=== PATIENT | male | born 1980 | race Hispanic/Latino ===

== ENCOUNTER 2022-04-25 11:24 | Emergency (ER) | payer OTHER ==
--- OUTSIDE RECORDS SUMMARY | 2022-04-25 11:28 | XMS REPORT | Continuity of Care Document ---
:1980 Author Organization [facility] t Address [address] [place] [address] Care Team Providers Name Role Phone Saad Hardin Attending Clinician Unavailable Problems Condition Condition Condition Status Onset Resolution Last Treating Co mments Source Name Details Category Date Date Treatment Clinician Date Crohn''s Crohn''s Problem Active Commo n disease disease [facility] with with - [facility] gastrointe gastrointe stinal stinal tract tract location location Mixed Mixed Diagnosis Active Common hyperlipid hyperlipid Sp [place] [facility] GERD GERD Problem Active Common without without Spirit esophagiti esophagiti - [facility] s [facility] Depression Depression Problem Active C ommon with with [facility] anxiety anxiety [facility] Allergies, Adverse Reactions, Alerts This patient has no known allergies or adverse reactions. Social History Social Habit Start Date Stop Date Quantity Comments Source Sex Assigned At [birth year] [facility] 00:00:00 00:00:00 [facility] Medications Ordered Filled Start Stop Current Ordering Indication Dosage Frequency Signature Comments Components Source Medication Medication Date Date Medication? Clinician (SIG) Name Name Terbinafine Terbinafine 2019- 2019- No Saad 1 Common HCl HCl 0-11 11-10 Hardin applicatio [facility] 00:00: 00:00 n to - [facility] 00 :00 affected [facility] Propranolol Propranolol Yes Saad 2 tablet Common HCl HCl [facility] Abilify Abilify Yes Saad 1 tablet Com mon [facility] Gabapentin Gabapentin Yes Saad 1 capsule Common [facility] Procedures This patient has no known procedures. Encounters Start End Encounter Admission Attending Care Care Encounter Source Date/Time Date/Time Type Type Clinicians Facility Department ID 2021-03-25 Outpatient WILMER Hardin [facility] [id number] Common 11:07:38 Saad [id number] [facility] 2021-03-25 Outpatient [facility]IL[facility] Hardin [facility] [id number] Common 11:07:16 Saad [id number] [facility] 2019-04-06 2019-04-06 [facility] [id number] Common 09:00:00 09:00:[address] [facility] 2018-12-08 2018-12-08 [facility] [id number] Common 10:30:00 10:30:[address] [facility] 2018-08-11 2018-08-11 [facility] [id number] Common 11:18:00 11:18:[address] [facility] 2018-08-11 2018-08-11 [facility] [id number] Common 09:00:00 09:00:[address] [facility] 2018-02-08 2018-02-08 [facility] [id number] Common 09:45:00 09:45:[address] [facility] Results This patient has no known results.
[2022-04-25] MEDS ORDERED: LIDOCAINE 1% MPF 5 ML VIAL ONE (12:17)
--- NOTE | 2022-04-25 12:41 | ER ---
Nurse's Notes [facility] Name: Tulio Jaimes Age: 42 yrs Sex: Male : 1980 Arrival Date: 04/25/2022 Time: 11:27 Bed 19 Private MD: Diagnosis: Laceration without foreign body of right hand Presentation: 04/25 11:32 Chief complaint: Patient states: "I basically stabbed myself on my hand making aa5 biscuits". Bleeding controlled. 11:32 Acuity: [place] 4 aa5 11:32 Onset of symptoms was April 25, 2022. aa5 11:32 Coronavirus screen: At this time, the client does not indicate any symptoms associated aa5 with coronavirus-19. Ebola Screen: Patient denies travel to an Ebola-affected area in the 21 days before illness onset. Initial Sepsis Screen: Does the patient meet any 2 criteria? No. Patient's initial sepsis screen is negative. Does the patient have a suspected source of infection? No. Patient's initial sepsis screen is negative. Risk Assessment: Do you want to hurt yourself or someone else? Patient reports no desire to harm self or others. 11:32 Method Of Arrival: Ambulatory aa5 Historical: - Allergies: 11:40 No Known Allergies; aa5 - PMHx: 11:40 None; aa5 - PSHx: 11:40 R knee; aa5 - Immunization history:: Adult Immunizations unknown, Last tetanus immunization: < 5 years ago. - Social history:: Smoking status: Patient denies any tobacco usage or history of. Screenin:45 [facility] ED Fall Risk Assessment (Adult) History of falling in the last 3 months, ko1 including since admission No falls in past 3 months (0 pts) Confusion or Disorientation No (0 pts) Intoxicated or Sedated No (0 pts) Impaired Gait No (0 pts) Mobility Assist Device Used No (0 pt) Altered Elimination No (0 pt) Score/Fall Risk Level 0 - 2 = Low Risk Oriented to surroundings, Maintained a safe environment, Educated pt \\T\\ family on fall prevention, incl call for assistance when getting out of bed, Assessed \\T\\ reinforced patient's understanding of fall precautions, Provided non-skid footwear, Hourly rounding (assess needs \\T\\ fall precautionary measures) done, Used ambulatory aids as needed (educated on \\T\\ assisted with), Used gait belt as appropriate. Abuse screen: Denies threats or abuse. Denies injuries from another. Nutritional screening: No deficits noted. Tuberculosis screening: No symptoms or risk factors identified. Assessment: 11:45 General: Appears in no apparent distress. comfortable, Behavior is calm, cooperative, ko1 appropriate for age. Pain: Complains of pain in Right first web space. Neuro: No deficits noted. Cardiovascular: No deficits noted. Respiratory: No deficits noted. GI: No deficits noted. : No deficits noted. EENT: No deficits noted. Derm: No deficits noted. Musculoskeletal: No deficits noted. Injury Description: Puncture sustained to right palm. Vital Signs: 11:32 BP 126 / 90; Pulse 72; Resp 16 S; Temp 98.0(TE); Pulse Ox 97% on R/A; Weight 86.18 kg aa5 (R); Height 5 ft. 8 in. (172.72 cm) (R); 12:00 BP 121 / 92; Pulse 70; Resp 16; Pulse Ox 99% ; ko1 12:45 BP 118 / 95; Pulse 68; Resp 16; Pulse Ox 99% ; ko1 11:32 Body Mass Index 28.89 (86.18 kg, 172.72 cm) aa5 ED Course: 11:27 Patient arrived in ED. rg4 11:32 Luann Godoy, ROBERT is Primary Nurse. ko1 11:33 Kiarra Hernandez FNP-C is PHCP. kb 11:33 Cuco Peacock MD is Attending Physician. kb 11:36 Arm band placed on. aa5 11:38 Triage completed. aa5 11:45 Patient has correct armband on for positive identification. Bed in low position. Call ko1 light in reach. Side rails up X 1. Pulse ox on. NIBP on. 12:45 Assist provider with laceration repair on Right first web space using sutures. Set up ko1 tray. Performed by Kiarra LEIVA Dressed with 4X4s, Marlen, Patient tolerated well. Patient did not have IV access during this emergency room visit. Administered Medications: 12:17 Drug: Lidocaine (1 %) 1 vials {Note: GIVEN TO PROVIDER.} Volume: 5 ml; Route: bp Infiltration; Medication: 12:00 VIS not applicable for this client. ko1 Outcome: 12:41 Discharge ordered by MD. dos santos 12:51 Discharged to home ambulatory. ko1 12:51 Condition: improved 12:51 Discharge instructions given to patient, Instructed on discharge instructions, follow up and referral plans. wound care, Demonstrated understanding of instructions, follow-up care, wound care. 12:51 Patient left the ED. ko1 Signatures: Kiarra Hernandez, NATURAL RESOURCES INSTRUCTOR-C NATURAL RESOURCES INSTRUCTOR-Ckb Melissa Garrett, RN RN jose guadalupe5 Roselia Dee 4 Heath Ledezma, ROBERT RN bp Luann Godoy RN RN ko1
--- NOTE | 2022-04-25 12:41 | EDPHYS ---
Physician Documentation [facility] Name: Tulio Jaimes Age: 42 yrs Sex: Male : 1980 Arrival Date: 04/25/2022 Time: 11:27 Bed 19 Private MD: ED Physician Cuco Peacock HPI: 04/25 14:31 This 42 yrs old Male presents to ER via Ambulatory with complaints of Finger kb Laceration. 14:31 The patient has a laceration related to: cooking, occurred at home, and there are no kb complicating factors. The injury was accidental. The laceration(s) is(are) located on the Right first web space. Onset: The symptoms/episode began/occurred just prior to arrival. Associated signs and symptoms: The patient has no apparent associated signs or symptoms. The patient has not experienced similar symptoms in the past. The patient has not recently seen a physician. Historical: - Allergies: 11:40 No Known Allergies; aa5 - PMHx: 11:40 None; aa5 - PSHx: 11:40 R knee; aa5 - Immunization history:: Adult Immunizations unknown, Last tetanus immunization: < 5 years ago. - Social history:: Smoking status: Patient denies any tobacco usage or history of. ROS: 14:29 Constitutional: Negative for fever, chills, and weight loss. kb 14:29 Skin: Positive for laceration(s), of the Right first web space. 14:29 All other systems are negative. Exam: 14:29 Constitutional: This is a well developed, well nourished patient who is awake, alert, kb and in no acute distress. Head/Face: Normocephalic, atraumatic. ENT: Moist Mucous membranes Cardiovascular: Regular rate and rhythm with a normal S1 and S2. No gallops, murmurs, or rubs. No pulse deficits. Respiratory: Respirations even and unlabored. No increased work of breathing. Talking in full sentences MS/ Extremity: Pulses equal, no cyanosis. Neurovascular intact. Full, normal range of motion. Neuro: Awake and alert, GCS 15, oriented to person, place, time, and situation. Moves all extremities. Normal gait. 14:29 Skin: injury, laceration(s), the wound is approximately 1 cm(s), of the Right first web space, that can be described as clean, no foreign body, linear, without bleeding. Vital Signs: 11:32 BP 126 / 90; Pulse 72; Resp 16 S; Temp 98.0(TE); Pulse Ox 97% on R/A; Weight 86.18 kg aa5 (R); Height 5 ft. 8 in. (172.72 cm) (R); 12:00 BP 121 / 92; Pulse 70; Resp 16; Pulse Ox 99% ; ko1 12:45 BP 118 / 95; Pulse 68; Resp 16; Pulse Ox 99% ; ko1 11:32 Body Mass Index 28.89 (86.18 kg, 172.72 cm) aa5 Laceration: 12:40 Wound Repair of 1cm ( 0.4in ) subcutaneous laceration to Right first web space. Linear kb shaped.. Distal neuro/vascular/tendon intact. Anesthesia: Wound infiltrated with 2 mls of 1% lidocaine. Wound prep: Extensive cleansing with hibiclenz by me, Wound irrigation with saline by me. Skin closed with 2 5-0 Prolene using simple sutures and sterile technique. Patient tolerated well. MDM: 11:33 Patient medically screened. kb 14:28 Data reviewed: vital signs, nurses notes. kb 14:29 Differential diagnosis: superficial laceration, tendon injury. Counseling: I had a kb detailed discussion with the patient and/or guardian regarding: the historical points, exam findings, and any diagnostic results supporting the discharge/admit diagnosis, the need for outpatient follow up, a family practitioner, to return to the emergency department if symptoms worsen or persist or if there are any questions or concerns that arise at home. ED course: Patient is a 42-year-old male who presents after accidentally cut himself with a kitchen knife to right hand. States he was trying to open a can of biscuits and accidentally stabbed his right hand with a knife. On exam patient has 1 cm laceration near first web spacing on right hand, bleeding controlled. Patient has full range of motion of hand and fingers. 2 sutures placed to repair laceration, patient tolerated well. Patient educated to follow-up with PCP in 7 to 10 days for suture removal. Educated on return precautions and signs of infection to watch for. Verbal understanding received.. 04/25 12:08 Order name: Dressing - Wound; Complete Time: 12:12 kb 04/25 12:08 Order name: Gloves, Sterile; Complete Time: 12:12 kb 04/25 12:08 Order name: Prolene, Sutures; Complete Time: 12:12 kb 04/25 12:08 Order name: Setup Suture Tray; Complete Time: 12:12 kb Administered Medications: 12:17 Drug: Lidocaine (1 %) 1 vials {Note: GIVEN TO PROVIDER.} Volume: 5 ml; Route: bp Infiltration; Disposition Summary: 04/25/22 12:41 Discharge Ordered Location: Home kb Condition: Stable kb Diagnosis - Laceration without foreign body of right hand kb Followup: kb - With: Emergency Department - When: As needed - Reason: Worsening of condition Followup: kb - With: Private Physician - When: 2 - 3 days - Reason: Recheck today's complaints, Continuance of care, Re-evaluation by your physician Discharge Instructions: - Discharge Summary Sheet kb - Laceration Care, Adult, [id number] kb Forms: - Medication Reconciliation Form kb - Thank You Letter kb - Antibiotic Education kb - Prescription Opioid Use kb Addendum: 04/27/2022 07:12 Co-signature as Attending Physician, Cuco Peacock MD I reviewed the patient's care r n provided by the Advanced Practice Provider and agree with the diagnosis and treatment plan. Signatures: Kiarra Hernandez, FLORIST'S DECORATOR-C FLORIST'S DECORATOR-Ckb Cuco Peacock MD MD rn Calderon, Audri RN RN aa5 Heath Ledezma RN RN bp
== END 2022-04-25 12:51 | disposition home or self-care (01) ==
LOC: ER 11:24
PROC: 0HQFXZZ Repair Right Hand Skin, External Approach (ICD-10-PCS; principal; 2022-04-25)
DX: S61.411A Laceration without foreign body of right hand, initial encounter (principal)
CPT/HCPCS: 99283; 12001; J2001

== ENCOUNTER 2022-05-04 08:18 | Day surgery (SDC) | payer OTHER ==
[2022-05-04] MEDS ORDERED: BUPIVACAINE 0.5% PF 10 ML VIAL ONE (08:31)
[2022-05-04] MEDS ORDERED: LIDOCAINE 1% W/EPI 1:100,000 10 ML VIAL ONE (08:31)
[2022-05-04] MEDS ORDERED: Ringers Lactate 1,000 ML IV ONE (08:33)
[2022-05-04] MEDS ORDERED: CELECOXIB 100 MG CAPSULE ONE (08:48)
[2022-05-04] MEDS ORDERED: ACETAMINOPHEN 500 MG TAB ONE (08:48)
[2022-05-04] MEDS ORDERED: MIDAZOLAM HCL 2 MG/2 ML INJ ONE (08:55)
[2022-05-04] MEDS: CEFAZOLIN SODIUM 1 GM/VIAL ONE ×2 (08:56→09:10)
[2022-05-04] MEDS ORDERED: FENTANYL CITR 100 MCG/2 ML ONE ×2 (09:04→10:11)
[2022-05-04] MEDS ORDERED: propofoL 200 MG/20 ML VIAL IV ONE (09:08)
[2022-05-04] MEDS ORDERED: NS 0.9% VIAL 10 ML ONE (09:11)
[2022-05-04] MEDS ORDERED: LIDOCAINE 2% MPF 5 ML VIAL ONE (09:11)
[2022-05-04] MEDS ORDERED: ONDANSETRON 4 MG/2 ML VIAL ONE ×2 (09:26→10:51)
[2022-05-04] MEDS ORDERED: HEPARIN 5000 UNIT/ML 1 ML VIAL ONE (10:03)
[2022-05-04] MEDS ORDERED: NA CHLORIDE 0.9% 100 ML ONE (10:04)
[2022-05-04] MEDS ORDERED: NA CHLORIDE 0.9% 1,000 ML ONE (10:11)
[2022-05-04] MEDS ORDERED: KETOROLAC 30 MG/ML INJ ONE (10:11)
[2022-05-04] MEDS: HYDROMORPHONE HCL 1 MG/ML INJ ONE ×2 (10:55→11:00)
[2022-05-04 11:17] VITALS: O2SAT 98
[2022-05-04] MEDS ORDERED: HYDROCODONE/APAP 7.5/325 MG TAB ONE (11:37)
[2022-05-04 12:47] VITALS: BP 128/86; TEMP 97.1
--- NOTE | 2022-05-04 16:49 | OP ---
Surgeon: Harpreet Jimenes MD Preoperative Diagnosis: Laceration of the right index finger, distal artery and digital nerve. Postoperative Diagnosis: Laceration of the right index finger, distal artery and digital nerve. Procedure: Debridement of skin and subcutaneous tissue, simple closure of 2 cm wound, microscope dis section repair of the distal artery and digital nerve to the radial aspect of the right index finger. Anesthesia: General. Description Of Procedure: After satisfactory induction of general anesthesia, the hand was prepped w ith DuraPrep, dry sterile drapes placed in the usual manner. The arm was elevated, exsanguinated wit h Esmarch, tourniquet inflated to 250 mmHg. Hand placed on the OR table. Elliptical incision was ma de around the closed laceration. Sutures were removed and sent to pathology. The proximal extension made. The laceration extended into the digital nerve and transected completely the distal artery. The nerve was 99% lacerated. The only part attached was ulnarly. The nerve was freshened by using s traight scissors and the soft tissue was removed. Then underwent repair with 9-0 nylon sutures epine ural repair. After this was done, the distal artery was grasped with the proximal clamps and debride d, approximated, and then closed with a full-thickness closure of 10-0 sutures. The tourniquet relea sed with flow through the artery. The wound was irrigated with saline and then skin closed with 4-0 Prolene with vertical mattress simple sutures in half buried mattress. Dressed with Xeroform, 2 inch Marlen and Kerlix. The patient tolerated procedure well and returned to recovery. NEISHA/KATIE Voice ID: [id number] Report ID: [id number]
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
== END 2022-05-04 12:00 | disposition home or self-care (01) ==
LOC: OR 08:18
PROVIDERS: ATTEND Specialist
PROC: 0XQN0ZZ Repair Right Index Finger, Open Approach (ICD-10-PCS; 2022-05-04)
PROC: 0JDJ0ZZ Extraction of Right Hand Subcutaneous Tissue and Fascia, Open Approach (ICD-10-PCS; 2022-05-04)
PROC: 03QD0ZZ Repair Right Hand Artery, Open Approach (ICD-10-PCS; principal; 2022-05-04 09:00)
DX: S61.210A Laceration without foreign body of right index finger without damage to nail, initial encounter (principal); S64.490A Injury of digital nerve of right index finger, initial encounter; S65.510A Laceration of blood vessel of right index finger, initial encounter
CPT/HCPCS: 35207; 64836; 11042; 88304; J1644 ×2; A4216; J2704; J2001; J2250; J3010 ×2; J1170; J2405 ×2; J7120; J7030; J0690